=== PATIENT | male | born 1980 | race Two or more races ===

== ENCOUNTER 2018-05-01 15:59 | Emergency (ER) | payer MEDICAID ==
[~2018-05-01] VITALS: Ht 167.6 cm; Wt 81.6 kg
[2018-05-01] MEDS ORDERED: ceFAZolin 2gm/50ml Premix 50 ML IVPB ONE (16:00)
[2018-05-01 16:29] VITALS: BP 161/111
[2018-05-01 16:46] LABS: EOSINOPHILS % (AUTO) 1.5 % (0.0-3.0); HEMATOCRIT 38.5 % (42.0-52.0); HEMOGLOBIN 13.7 G/DL (14.2-18.0); LYMPHOCYTES % (AUTO) 37.7 % (20.0-45.0); MEAN CORPUSCULAR VOLUME 89 FL (80-99); MONOCYTES % (AUTO) 8.7 % (1.0-10.0); NEUTROPHILS % (AUTO) 51.1 % (45.0-75.0); PLATELET COUNT 220 K/UL (150-450); RED BLOOD COUNT 4.32 M/UL (4.70-6.10); WHITE BLOOD COUNT 7.8 K/UL (4.8-10.8)
[2018-05-01 16:50] LABS: ANION GAP 7 mmol/L (5-15); BLOOD UREA NITROGEN 12 mg/dL (7-18); CALCIUM 8.9 MG/DL (8.5-10.1); CARBON DIOXIDE 31 MMOL/L (21-32); CHLORIDE 106 MMOL/L (98-107); CREATININE 1.1 MG/DL (0.55-1.30); POTASSIUM 3.3 MMOL/L (3.5-5.1); SODIUM 144 MMOL/L (136-145)
[2018-05-01 16:56] LABS: ALANINE AMINOTRANSFERASE 30 U/L (12-78); ALBUMIN 3.5 G/DL (3.4-5.0); ALBUMIN/GLOBULIN RATIO 0.9 (1.0-2.7); ALKALINE PHOSPHATASE 108 U/L (46-116); ASPARTATE AMINO TRANSFERASE 16 U/L (15-37); BILIRUBIN,TOTAL 0.2 MG/DL (0.2-1.0)
[2018-05-01] MEDS ORDERED: Lidocaine 1% Plain 30 ml INJ ONE (17:00)
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
[2018-05-01] MEDS ORDERED: CEPHALEXIN500 MG ORAL (17:22)
[2018-05-01] MEDS ORDERED: NORCO 5-325 TA1 EACH ORAL (17:22)
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
[2018-05-01] MEDS ORDERED: Tetanus/Diptheria/Pertussis Vaccine 0.5ml Syr IM ONE (17:45)
[2018-05-01 18:34] VITALS: BP 150/97
== END 2018-05-01 18:38 | disposition home or self-care (01) ==
LOC: EDBD 15:59 → EMR 16:13
DX: S91.302A Unspecified open wound, left foot, initial encounter (principal); W34.00XA Accidental discharge from unspecified firearms or gun, initial encounter; Y92.9 Unspecified place or not applicable; Y92.009 Unspecified place in unspecified non-institutional (private) residence as the place of occurrence of the external cause; Z23 Encounter for immunization
CPT/HCPCS: 12001; 36415; 73620; 80053; 85025; 90471; 90715; 96365; 99284; J0690; J2001; Z7502